=== PATIENT | female | born 1995 | race American Indian/Alaskan Native ===

== ENCOUNTER 2018-11-06 16:23 | Inpatient (IN) | payer MEDICAID ==
--- NOTE | 2018-11-06 19:41 | Ultrasound Report ---
ULTRASOUND OBSTETRIC limited second trimester INDICATION / CLINICAL INFORMATION: no fht. Clinical Gestational Age (GA): 39 weeks 0 days TECHNIQUE: Transabdominal. COMPARISON: None available. FINDINGS: Single intrauterine is noted. No heart tones are detected on M-mode technique charact eristic for demise. Position: cephalic. Cervix: closed. IMPRESSION: 1. demise with no cardiac activity. Signer Name: Lalo Dee MD Signed: 11/06/2018 7:36 PM Workstation Name: [id number]
[2018-11-06] MEDS ORDERED: LACTATED RINGERS 1,000 ML ONE (20:47)
[2018-11-06] MEDS ORDERED: XYLOCAINE 2% INFILTRATI ONE (20:52)
[2018-11-06] MEDS ORDERED: MINERAL OIL PO PRN (20:52)
[2018-11-06] MEDS ORDERED: AMPICILLIN/NS 2 GM/100 ML 2 GM/100 ML BAG IV ONE (20:52)
[2018-11-06] MEDS ORDERED: CERVIDIL VG ONE (20:52)
[2018-11-06] MEDS ORDERED: BRETHINE SUB-Q PRN (20:52)
[2018-11-06] MEDS ORDERED: SUBLIMAZE IV PRN (20:52)
[2018-11-06] MEDS ORDERED: BRETHINE IVP PRN (20:52)
[2018-11-06] MEDS ORDERED: PITOCin/NS 20 UNIT/1000ML DRIP 20 UNITS/1,000 ML BAG IV SCH (21:00)
[2018-11-06] MEDS ORDERED: PITOCin/NS 30 UNIT/500ML 30 UNITS/500 ML BAG IV SCH (21:00)
--- NOTE | 2018-11-06 23:30 | History and Physical Report ---
History of Present Illness Date of examination: 11/06/18 Date of admission: 11/06/2018 Chief complaint: IUFD History of present illness: 23 yo, , at 39.0 wks gestation who [facility] at 14 wks gestation. Seen earlier today at the clinic and found to have no audible FHTs by doppler or U/S. Sent to [facility] for confirmatory U/S, which was also shown to have negative FHTs. Ms. Taveras chose to move forward with IOL at this time. Her has been complicated by +smoker (marijuana), sickle cell trait, and Vit D deficiency. Labs: O+, antibody negative; HBsAg negative; RPR non reactive; Rubella immune; HIV negative; 1hr [id number]; GBS negative. Past History Past Medical History: other (Sickle cell trait) Past Surgical History: no surgical history Family/Genetic History: none Social history: single, lives with family, smoking (THC), full code. denies: alcohol abuse, prescription drug abuse, IV drug use - Obstetrical History Expected Date of Delivery: 11/13/18 Actual Gestation: 39 Week(s) 0 Day(s) : 1 Para: 0 Hx # Term Pregnancies: 0 Number of Pregnancies: 0 Spontaneous Abortions: 0 Induced : 0 Number of Living Children: 0 Medications and Allergies Allergies Allergy/AdvReac Type Severity Reaction Status Date / Time No Known Allergies Allergy Unverified 11/06/18 16:33 Active Meds: Active Medications Butorphanol Tartrate (Stadol) 2 mg IV Q2H PRN PRN Reason: Pain , Severe (7-10) Ephedrine Sulfate (Ephedrine Sulfate) 10 mg IV Q2M PRN PRN Reason: Hypotension Fentanyl (Sublimaze) 100 mcg IV Q2H PRN PRN Reason: Labor Pain Oxytocin/Sodium Chloride (Pitocin/Ns 20 Unit/1000ml Drip) 20 units in 1,000 mls @ 125 mls/hr IV DIRECT LESLY Lactated Ringer's (Lactated Ringers) 1,000 mls @ 125 mls/hr IV DIRECT LESLY Mineral Oil (Mineral Oil) 30 ml PO QHS PRN PRN Reason: Constipation Terbutaline Sulfate (Brethine) 0.25 mg SUB-Q ONCE PRN PRN Reason: Hyperstimulation/Hypertonicity Terbutaline Sulfate (Brethine) 0.25 mg IVP ONCE PRN PRN Reason: Hyperstimulation/Hypertonicity Review of Systems All systems: negative - Vital Signs Vital signs: Vital Signs Pulse BP 106 H 126/77 11/06/18 21:21 11/06/18 21:21 Temp Pulse Resp BP Pulse Ox 98.6 F 105 H 125/73 11/06/18 22:33 11/06/18 22:51 11/06/18 22:51 - Physical Exam Breasts: Positive: deferred Cardiovascular: Regular rate Lungs: Positive: Normal air movement Abdomen: Positive: other (gravid) Genitourinary (Female): Positive: normal external genitalia Vagina: Positive: normal moisture Uterus: Positive: enlarged (S=D) Extremities: Positive: normal Deep Tendon Reflex Grade: Normal +2 - Obstetrical FHR: other (IUFD) Uterine Contraction Monitor Mode: External Cervical Dilatation: 2 Cervical Effacement Percentage: 50 station: -2 Uterine Contraction Pattern: Absent Uterine Tone Measurement Phase: Resting Results All other labs normal. Assessment and Plan - Patient Problems (1) IUFD (intrauterine ) Current Visit: Yes Status: Acute Plan to address problem: Admit to L & D Cervidil x 12 hr as tolerated Pain medication as desired Anticipate (2) Encounter for induction of labor Current Visit: Yes Status: Acute
[2018-11-07 00:53] LABS: Hemoglobin 10.4 gm/dl (10.1-14.3); Red Blood Count 4.01 M/mm3 (3.65-5.03)
[2018-11-07 00:54] LABS: Hematocrit 31.3 % (30.3-42.9); Mean Corpuscular HGB Conc 33 % (30-34); Mean Corpuscular Volume 78 fl (79-97); Mean Platelet Volume 9.6 fl (6-12); Platelet Count 254 K/mm3 (140-440); Red Cell Distribution Width 17.5 % (13.2-15.2)
[2018-11-07] MEDS: STADOL IV PRN ×3 (06:33→10:53)
[2018-11-07] MEDS: LACTATED RINGERS 1,000 ML IV SCH ×2 (06:52→10:57)
[2018-11-07] MEDS ORDERED: LANSINOH TP PRN (13:04)
[2018-11-07] MEDS ORDERED: PERCOCET 5/325 PO PRN (13:04)
[2018-11-07] MEDS ORDERED: BENADRYL PO PRN (13:04)
[2018-11-07] MEDS ORDERED: PHENERGAN PO PRN (13:04)
--- NOTE | 2018-11-07 13:14 | Procedure Note ---
OB Delivery Note - Delivery Date of Delivery: 11/07/18 (1132) Surgeon: JUDSON MAHAN Estimated blood loss: 200cc - Vaginal Delivery presentation: vertex Delivery position: OA Delivery induction: cervidil Delivery monitor: external uterine Route of delivery: Delivery placenta: spontaneous Delivery cord: 3 umbilical vessels Episiotomy: none Delivery laceration: none Anesthesia: none Delivery comments: of a 7'3 female demise under IV pain control over a intact perineum with Apgars of 0 and 0 at 1132 on 11/07/2018. Demise placed on maternal chest per mother's request. Spontaneous delivery of placenta complete and intact with Hyatt side presenting at 1137. Fundus is firm and midline located 5 below the U. Lochia is scant. Cord cut by patient's Uncle. Placenta to pathology. Observed that the cord was very thin at insertion to umbilicus. Several family members present and supportive. - Infant A at 1 minute: 0 at 5 minutes: 0 Infant Gender: Female (7'3)
[2018-11-07] MEDS ORDERED: SODIUM CHLORIDE FLUSH SYRINGE 10 ML IV NR (14:00)
[2018-11-07] MEDS: IBUPROFEN PO SCH (14:28)
[2018-11-08] MEDS: IBUPROFEN PO SCH ×2 (00:52→05:39)
[2018-11-08 01:36] LABS: Hematocrit 32.1 % (30.3-42.9); Hemoglobin 10.4 gm/dl (10.1-14.3)
--- NOTE | 2018-11-08 12:09 | Progress Note ---
Assessment and Plan A: PPD#1 s/p term IUFD Stable P: Routine PP orders Discharge home today F/U in office in 2 weeks Subjective - Subjective Date of service: 11/08/18 Principal diagnosis: PPD#1 s/p term IUFD Patient reports: appetite normal, voiding normally, pain well controlled, flatus, ambulating normally : Objective - Vital Signs Latest vital signs: Vital Signs Temp Pulse Resp BP BP Pulse Ox 11/08/18 07:25 97.8 F 82 18 111/63 11/08/18 04:00 98.4 F 64 18 112/78 11/08/18 00:52 20 11/08/18 00:30 98.7 F 70 18 114/71 11/07/18 19:30 98.7 F 62 18 102/67 11/07/18 16:12 98 F 91 H 18 141/71 11/07/18 13:10 98.8 F 84 18 119/66 100 11/07/18 12:12 100 H 121/62 Intake and Output 11/07/18 11/08/18 11/08/18 23:59 07:59 15:59 Intake Total 780 480 Output Total 700 Balance 80 480 Intake: Oral 480 480 Intake, Free Water 300 Output: Urine 700 Void 700 Other: Total, Intake Amount 480 480 Total, Output Amount 700 # Voids Void 2 - Exam Breasts: Present: normal Cardiovascular: Present: Regular rate, Normal S1, Normal S2, No murmurs Lungs: Present: Clear to auscultation, Normal air movement Abdomen: Present: normal appearance, normal bowel sounds. Absent: distention Vulva: both: normal Uterus: Present: firm, fundal height below umbilicus (-1) Extremities: Present: normal Deep Tendon Reflex Grade: Normal +2
--- NOTE | 2018-11-08 12:12 | Discharge Summary ---
Providers - Providers Date of Admission: 11/06/18 16:24 Date of discharge: 11/08/18 Attending physician: JAMES MENDOZA MD Primary care physician: JAMES MENDOZA MD Hospitalization Reason for admission: IUFD, IUP at term Delivery: Procedure details: See delivery note Episiotomy: none Laceration: none Other procedures: none complications: none Discharge diagnosis: IUP at term delivered, other (IUFD) baby: female (IUFD at 39 weeks) Condition at discharge: Good Disposition: DC-01 TO HOME OR SELFCARE Plan - Provider Discharge Summary Activity: routine, no sex for 6 weeks, no heavy lifting 4 weeks, no strenuous exercise Diet: routine Instructions: routine Additional instructions: [] Smoking cessation referral if applicable(refer to patient education folder for contact #) [] Refer to [facility]'s [facility] Booklet Call your doctor immediately for: * Fever > 100.5 * Heavy vaginal bleeding ( >1 pad per hour) * Severe persistent headache * Shortness of breath * Reddened, hot, painful area to leg or breast * Drainage or odor from incision. * Keep incision clean and dry at all times and follow doctor's instructions regarding bathing/showering - Follow up plan Follow up: JESSY ALVAREZ, CHARLETTE [Advanced Practice Nurse] - 11/22/18
[2018-11-08 12:48] VITALS: BP 129/74
[2018-11-08] MEDS ORDERED: CERVIDIL VG ONE (13:30)
== END 2018-11-08 16:20 | disposition home or self-care (01) | DRG 775 ==
LOC: TRG 16:23 → LD 16:24 → OB 11-07 13:43
PROVIDERS: ADMIT Obstetrics & Gynecology; ATTEND Obstetrics & Gynecology
PROC: 10E0XZZ Delivery of Products of Conception, External Approach (ICD-10-PCS; principal; 2018-11-07)
PROC: 3E0P7VZ Introduction of Hormone into Female Reproductive, Via Natural or Artificial Opening (ICD-10-PCS; 2018-11-07)
DX: O36.4XX0 Maternal care for intrauterine death, not applicable or unspecified (principal); Z3A.39 39 weeks gestation of pregnancy; Z37.0 Single live birth
CPT/HCPCS: 36415; 59200; 76815; 85014; 85018; 85027; 86592; 86850; 86900; 86901; 88307; G0378; J0595; J2590; J7120

== ENCOUNTER 2019-09-09 20:47 | Outpatient (CLI) | payer OTHER ==
[2019-09-09 21:37] VITALS: BP 127/66
== END 2019-09-09 22:15 | disposition home or self-care (01) ==
LOC: TRG 20:47
PROVIDERS: ATTEND Obstetrics & Gynecology
DX: O36.8120 Decreased fetal movements, second trimester, not applicable or unspecified (principal); Z3A.26 26 weeks gestation of pregnancy
CPT/HCPCS: 59025